=== PATIENT | male | born 1960 | race Two or more races ===

== ENCOUNTER 2018-04-29 08:16 | Observation (INO) | payer SELFPAY ==
[2018-04-29 08:49] LABS: BASO % 0.8 % (0-2.0); EOS % 2.6 % (0-4.5); HEMATOCRIT 42.2 % (35.4-49); HEMOGLOBIN 13.8 GM/dl (11.7-16.9); LYMPH % 22.9 % (8-40); MCH 30.7 pg (25.7-33.7); MCHC 32.8 g/dl (32.0-35.9); MEAN CELL VOLUME 93.7 fl (80-96); MONO % 4.8 % (3.8-10.2); NEUT % 68.9 % (42.8-82.8); PLATELET COUNT 272 K/MM3 (134-434); RDW 13.4 % (11.9-15.9); WHITE BLOOD COUNT 10.1 K/mm3 (4.0-10.8)
[2018-04-29 08:50] LABS: PH,URINE 5.5 (4.5-8); URINE APPEARANCE Clear; URINE BILIRUBIN Negative (NEGATIVE); URINE COLOR Yellow; URINE GLUCOSE (UA) Trace (NEGATIVE); URINE KETONE Negative (NEGATIVE); URINE LEUK ESTERASE Negative (NEGATIVE); URINE NITRITE Negative (NEGATIVE); URINE UROBILINOGEN 0.2 (0.2-1.0)
[2018-04-29 08:51] LABS: URINE PROTEIN 2+ (NEGATIVE)
[2018-04-29 09:02] LABS: ALBUMIN 4.7 g/dl (3.5-5.0); ALK PHOS 71 U/L (32-92); ANION GAP 10 MMOL/L (8-16); BLOOD UREA NITROGEN 21 mg/dl (7-18); CALCIUM 9.2 mg/dl (8.4-10.2); CHLORIDE 97 mmol/L (98-107); CO2 30 mmol/L (22-28); CREATININE 1.4 mg/dl (0.6-1.3); GLUCOSE,RANDOM 136 mg/dl (74-106); POTASSIUM 3.9 mmol/L (3.5-5.1); SGOT/AST 22 U/L (10-42); SGPT/ALT 22 U/L (10-40); SODIUM 137 mmol/L (136-145); TOT PROT 8.1 g/dl (6.4-8.3)
[2018-04-29] MEDS ORDERED: LABETALOL HCL 5 MG/1 ML (100MG/20 ML VIAL) IVPUSH ONE ×3 (09:05→15:30)
[2018-04-29] MEDS ORDERED: LABETALOL HCL 5 MG/1 ML (100MG/20 ML VIAL) ONE (09:09)
[2018-04-29 09:14] LABS: URINE WBC 0-3 (0-2)
[2018-04-29 09:15] LABS: EPI CELLS RARE /HPF
--- NOTE | 2018-04-29 09:35 | PDOC ---
History of Present Illness - General Chief Complaint: Blood Pressure Problem Stated Complaint: HTN Time Seen by Provider: 04/29/18 08:28 History Source: Patient Exam Limitations: Language Barrier - History of Present Illness Initial Comments: 04/29/18 09:33 58 YOM [place] speaking with no medical history presenting with hypertension. c/o left leg and calf pain intermittently x 2 months, described as "stiffness" and "spasms," worse with movement. has been taking advil 200mg tablets x 6 daily and aspirin daily x 2 months every day for his pain relief, with minimal effect. went to health clinic in [facility] 1 day ago, where he was told he has very elevated BP, but not sent home on medications. referred to ED at the time for evaluation. otherwise no MADDOX, dizziness, CP, sob, abd pain, vomiting, diarrhea, weakness. + intermittent tingling in left leg. no trauma or falls no family or personal h/o HTN, HLD, CAD, Stroke or DM. [employer] interpretation [place] #[id number] Past History - Past Medical History Allergies/Adverse Reactions: Allergies Allergy/AdvReac Type Severity Reaction Status Date / Time No Known Allergies Allergy Verified 04/29/18 08:17 Home Medications: Ambulatory Orders NK [No Known Home Medication] 04/29/18 COPD: No DVT: No Other medical history: DENIES - Suicide/Smoking/Psychosocial Hx Smoking History: Never smoked Hx Alcohol Use: No Drug/Substance Use Hx: No Substance Use Type: None Review of Systems - Review of Systems Able to Perform ROS?: Yes Comments:: 04/29/18 09:35 GENERAL/CONSTITUTIONAL: No fever or chills. No weakness. no sweats. HEAD, EYES, EARS, NOSE AND THROAT: No change in vision or hearing. No ear pain or discharge. No sore throat or mouth pain. No difficulty swallowing.. No congestion. CARDIOVASCULAR: No chest pain or palpitations, syncope or edema. RESPIRATORY: No SOB GASTROINTESTINAL No nausea/vomiting. No diarrhea or constipation. GENITOURINARY: No hematuria, dysuria, frequency, urgency or other changes. MUSCULOSKELETAL: +left leg pain, spasms and tingling. No neck or back pain. SKIN: No rash or changes in skin color or lesions. NEUROLOGIC: No headache, vertigo, loss of consciousness, no weakness. +tingling in legs HEMATOLOGIC/LYMPHATIC: No anemia, easy bruising/bleeding, or history of blood clots. ALLERGIC/IMMUNOLOGIC: No allergies All other systems reviewed and negative, or as documented in HPI. *Physical Exam - Vital Signs Last Vital Signs Temp Pulse Resp BP Pulse Ox 98.8 F 85 18 191/132 98 04/29/18 08:17 18 09:22 18 09:15 04/29/18 09:22 04/29/18 09:15 - Physical Exam Comments: 04/29/18 09:36 General: Well appearing, awake and alert, NAD. HEENT: NCAT, PERRL, EOMI, mild proptosis. clear conjunctiva, anicteric, moist mucus membranes, clear oropharynx Neck: neck supple, FROM. no JVD. Resp: CTAB, normal and even respirations, no respiratory distress CVS: RRR, no murmurs, 2+ peripheral pulses throughout, no peripheral edema Abdomen: soft, NTND, no peritoneal signs. Back: nontender, normal inspection and ROM MSK: no edema, MONTOYA x4, ROM intact. No clubbing or cyanosis. normal bulk and tone. +left calf tenderness, no swelling. Extrem: varicosities, nontendor and soft in RLE. +left calf tenderness. Neuro: alert, oriented appropriately; no focal neurologic deficits. SILT, 5/5 distal and prox strength in all extrem. speech clear. Skin: warm and well perfused, cap refill <2 sec, normal color 04/29/18 09:37 Heart Score/ECG Review - ECG Impressions Comment:: 04/29/18 09:42 EKG normal sinus rhythm, no interval abnormalities, narrow QRS, ST and T wave segments and morphology normal. Nonspecific T wave abnormalities in lateral leads, TWI in I, AVL/lateral distribution ED Treatment Course - LABORATORY CBC & Chemistry Diagram: 04/29/18 08:38 04/29/18 08:38 - ADDITIONAL ORDERS Additional order review: Laboratory Results 04/29/18 04/29/18 08:42 08:38 Sodium 137 Potassium 3.9 Chloride 97 L Carbon Dioxide 30 H Anion Gap 10 BUN 21 H Creatinine 1.4 H Creat Clearance w eGFR 51.87 Random Glucose 136 H Calcium 9.2 Total Bilirubin 1.0 AST 22 ALT 22 Alkaline Phosphatase 71 Total Protein 8.1 Albumin 4.7 Urine Color Yellow Urine Appearance Clear Urine pH 5.5 Ur Specific [place] 1.025 Urine Protein 2+ H Urine Glucose (UA) Trace Urine Ketones Negative Urine Blood 1+ H Urine Nitrite Negative Urine Bilirubin Negative Urine Urobilinogen 0.2 Ur Leukocyte Esterase Negative Urine RBC 4-6 Urine WBC 0-3 Ur Epithelial Cells Rare Hyaline Casts 3-5 04/29/18 08:38 RBC 4.50 MCV 93.7 MCHC 32.8 RDW 13.4 MPV 9.0 Neutrophils % 68.9 Lymphocytes % 22.9 Monocytes % 4.8 Eosinophils % 2.6 Basophils % 0.8 - RADIOLOGY Radiology Studies Ordered: Category Date Time Status DUPLEX VASCUL US-1 LEG [US] Stat Ultrasound 04/29/18 09:04 Ordered - Medications Given in the ED: ED Medications Discontinued Medications Generic Name Dose Route Start Last Admin Trade Name Freq PRN Reason Stop Dose Admin Labetalol HCl 10 mg 04/29/18 09:05 04/29/18 09:15 Normodyne Injection - IVPUSH 04/29/18 09:06 10 mg ONCE ONE Administration Medical Decision Making - Medical Decision Making 04/29/18 09:38 58 YOM with no known medical history presenting with Hypertension. has been taking multiple doses of NSAIDs/ASA for Left leg cramps/pain x 2 months. DDx. hypertensive urgency/emergency, YOSELIN, ATN, NSAID nephropathy. DVT, superficial thrombophlebitis. muscle spasms, neuropathy, sciatica. Vital signs reviewed, notable for Significant HTN 200s/120s, HR in 90s. given tylenol for pain control, labetalol, slow lowering of BP. likely elevated in the setting of increased NSAID use and risk of nephropathy. laboratory results and imaging reviewed, basic labs and lytes wnl, notable for elevated Cr and proteinuria. ASA levels checked and pending. EKG normal sinus rhythm, no interval abnormalities, narrow QRS, ST and T wave segments and morphology normal. Nonspecific T wave abnormalities in lateral leads, TWI in I, AVL/lateral distribution no other evidence of end organ damage, normal neuro status, no CT indicated. no cp or sob to warrant trop checks/cardiac eval. CXR with borderline cardiomegaly, but no edema or effusion. Duplex pending to r/o DVT, but with chronicity and no cp or sob, doubt PE or acute DVT as he as no risk factors such as immobilization, malignancy or pro coagulable state. - Trial of labetalol 20mg total IV, PO dose following; some improvement in BP with MAP drop of 25% max daily and slow decrease as there is risk of ischemia if too rapid drop of MAP/BP/. HR can tolerate BB. no drip at this time as he remains well appearing. Admit for hypertensive urgency with elevated Cr in setting of increased NSAID use.. Discussed results and management plan with pt via [place] interpretation at bedside, agree with impression and plan - admit to Dr. Lee, will call consults when he arrives to [facility]. 04/29/18 10:56 *DC/Admit/Observation/Transfer Diagnosis at time of Disposition: Hypertensive urgency, YOSELIN (acute kidney injury) - Discharge Dispostion Condition at time of disposition: Guarded Decision to Admit order: Yes Decision to Admit order Date/Time: 04/29/18 10:53 Decision to Admit Order Category Date Time Status Decision to Admit to Hospital Routine Admission 04/29/18 09:43 Active - Referrals - Patient Instructions - Post Discharge Activity
[2018-04-29] MEDS ORDERED: LABETALOL HCL 100 MG TABLET (FP) PO ONE (10:37)
[2018-04-29 15:51] VITALS: BMI 26.2
--- NOTE | 2018-04-29 16:55 | HP ---
Admitting History and Physical - Primary Care Physician PCP: Marietta Lee - Admission History of Present Illness: 58 YOM [place] speaking with no medical history presenting with hypertension. c/o left leg and calf pain intermittently x 2 months, described as "stiffness" and "spasms," worse with movement. has been taking advil 200mg tablets x 6 daily and aspirin daily x 2 months every day for his pain relief, with minimal effect. went to health clinic in [facility] 1 day ago, where he was told he has very elevated BP, but not sent home on medications. referred to ED at the time for evaluation. otherwise no MADDOX, dizziness, CP, sob, abd pain, vomiting, diarrhea, weakness. + intermittent tingling in left leg. no trauma or falls no family or personal h/o HTN, HLD, CAD, Stroke or DM. - Past Medical History Cardiovascular: Yes: HTN - Smoking History Smoking history: Current every day smoker Have you smoked in the past 12 months: Yes Aproximately how many cigarettes per day: 12 - Alcohol/Substance Use Hx Alcohol Use: No Home Medications - Allergies Allergies/Adverse Reactions: Allergies Allergy/AdvReac Type Severity Reaction Status Date / Time No Known Allergies Allergy Verified 04/29/18 08:17 - Home Medications Home Medications: Ambulatory Orders NK [No Known Home Medication] 04/29/18 Physical Examination Vital Signs: Vital Signs Temperature 98.8 F 04/29/18 15:34 Pulse Rate 88 04/29/18 15:34 Respiratory Rate 18 04/29/18 15:34 Blood Pressure 184/125 04/29/18 15:34 O2 Sat by Pulse Oximetry (%) 97 04/29/18 15:34 Constitutional: Yes: No Distress HENT: Yes: Atraumatic Neck: Yes: Supple Cardiovascular: Yes: Regular Rate and Rhythm Respiratory: Yes: CTA Bilaterally Gastrointestinal: Yes: Normal Bowel Sounds Extremities: Yes: WNL Edema: No Peripheral Pulses WNL: Yes Neurological: Yes: Alert, Oriented Labs: CBC, BMP 04/29/18 08:38 04/29/18 08:38 Problem List - Problems (1) YOSELIN (acute kidney injury) Assessment/Plan: ivf Code(s): N17.9 - ACUTE KIDNEY FAILURE, UNSPECIFIED (2) Hypertensive emergency Assessment/Plan: on bp meds monitor bp Code(s): I16.1 - HYPERTENSIVE EMERGENCY Assessment/Plan Laboratory Tests 04/29/18 04/29/18 04/29/18 08:38 08:38 08:42 WBC 10.1 RBC 4.50 Hgb 13.8 Hct 42.2 MCV 93.7 MCH 30.7 MCHC 32.8 RDW 13.4 Plt Count 272 MPV 9.0 Absolute Neuts (auto) 6.9 Neutrophils % 68.9 Lymphocytes % 22.9 Monocytes % 4.8 Eosinophils % 2.6 Basophils % 0.8 Sodium 137 Potassium 3.9 Chloride 97 L Carbon Dioxide 30 H Anion Gap 10 BUN 21 H Creatinine 1.4 H Creat Clearance w eGFR 51.87 Random Glucose 136 H Calcium 9.2 Total Bilirubin 1.0 AST 22 ALT 22 Alkaline Phosphatase 71 Total Protein 8.1 Albumin 4.7 TSH Urine Color Yellow Urine Appearance Clear Urine pH 5.5 Ur Specific [place] 1.025 Urine Protein 2+ H Urine Glucose (UA) Trace Urine Ketones Negative Urine Blood 1+ H Urine Nitrite Negative Urine Bilirubin Negative Urine Urobilinogen 0.2 Ur Leukocyte Esterase Negative Urine RBC 4-6 Urine WBC 0-3 Ur Epithelial Cells Rare Hyaline Casts 3-5 Salicylates 04/29/18 09:08 WBC RBC Hgb Hct MCV MCH MCHC RDW Plt Count MPV Absolute Neuts (auto) Neutrophils % Lymphocytes % Monocytes % Eosinophils % Basophils % Sodium Potassium Chloride Carbon Dioxide Anion Gap BUN Creatinine Creat Clearance w eGFR Random Glucose Calcium Total Bilirubin AST ALT Alkaline Phosphatase Total Protein Albumin TSH 1.23 Urine Color Urine Appearance Urine pH Ur Specific [place] Urine Protein Urine Glucose (UA) Urine Ketones Urine Blood Urine Nitrite Urine Bilirubin Urine Urobilinogen Ur Leukocyte Esterase Urine RBC Urine WBC Ur Epithelial Cells Hyaline Casts Salicylates < 1.7 L Active Medications Generic Name Dose Route Start Last Admin Trade Name Freq PRN Reason Stop Dose Admin Amlodipine Besylate 10 mg 04/29/18 17:00 04/29/18 17:15 Norvasc - PO 10 mg DAILY CHRIS Administration Hydralazine HCl 10 mg 04/29/18 17:11 04/29/18 17:33 Apresoline Injection - IVPUSH 10 mg Q6H PRN Administration HYPERTENSION Labetalol HCl 200 mg 04/29/18 22:00 Normodyne - PO BID CHRIS
--- NOTE | 2018-04-29 17:06 | CON.CARD ---
Consult Consult Specialty:: Cardiology Referred by:: Dr. Lee Reason for Consultation:: Cardiac evaluation - History of Present Illness Chief Complaint: HTN - uncontrolled History of Present Illness: Patient is a 58 year old male with no significant PMH except for severely elevated blood pressure found on this admission. He complains of left thigh pain. He denies chest pain, SOB or palpitations. He denies paroxysmal nocturnal dyspnea or orthopnea. He denies fever or chills. He denies nausea, vomiting, diarrhea or abdominal pain. He denies headache or lightheadedness. He was given Labetalol in the ER. - History Source History Provided By: Patient, Medical Record Limitations to Obtaining History: No Limitations - Past Medical History Cardio/Vascular: Yes: HTN - Past Surgical History Past Surgical History: Yes: None - Alcohol/Substance Use Hx Alcohol Use: No - Smoking History Smoking history: Current every day smoker Have you smoked in the past 12 months: Yes Aproximately how many cigarettes per day: 12 Home Medications - Allergies Allergies/Adverse Reactions: Allergies Allergy/AdvReac Type Severity Reaction Status Date / Time No Known Allergies Allergy Verified 04/29/18 08:17 - Home Medications Home Medications: Ambulatory Orders NK [No Known Home Medication] 04/29/18 Family Disease History - Family Disease History Family Disease History: Other: Father (HTN), Mother (HTN) Review of Systems - Review of Systems Constitutional: denies: Chills, Fever Cardiovascular: denies: Chest Pain, Palpitations, Shortness of Breath Respiratory: denies: Cough, Hemoptysis, Orthopnea, PND, SOB, SOB on Exertion Gastrointestinal: denies: Abdominal Pain, Constipation, Diarrhea, Melena, Nausea , Rectal Bleeding, Vomiting Genitourinary: denies: Dysuria, Hematuria Neurological: denies: Dizziness, Headache, Seizure, Syncope Vital Signs: Vital Signs Temperature 98.8 F 04/29/18 15:34 Pulse Rate 88 04/29/18 15:34 Respiratory Rate 18 04/29/18 15:34 Blood Pressure 184/125 04/29/18 15:34 O2 Sat by Pulse Oximetry (%) 97 04/29/18 15:34 HENT: Yes: Atraumatic Neck: Yes: Supple Respiratory: Yes: CTA Bilaterally Gastrointestinal: Yes: Normal Bowel Sounds, Soft. No: Tenderness Cardiovascular: Yes: Regular Rate and Rhythm JVD: No Carotid Bruit: No PMI: Non-Displaced Heart Sounds: Yes: S1, S2 Murmur: No: Systolic Murmur, Diastolic Murmur Edema: No - Other Data Labs, Other Data: CBC, BMP 04/29/18 08:38 04/29/18 08:38 Sinus rhythm Imaging - Results Chest X-ray: Report Reviewed (Unremarkable) Ultrasound: Report Reviewed (No DVT) EKG: Report Reviewed Problem List - Problems (1) YOSELIN (acute kidney injury) Code(s): N17.9 - ACUTE KIDNEY FAILURE, UNSPECIFIED (2) Hypertensive emergency Code(s): I16.1 - HYPERTENSIVE EMERGENCY Assessment/Plan 1. Uncontrolled HTN 2. Thigh pain likely musculoskeletal 3. CKD PLAN: 1. Add Labetalol 200 mg BID 2. Add ACEI or ARB if need further BP control and if renal function is stable 3. Transthoracic echocardiography to assess LV/RV and valvular function 4. Continue Amlodipine Further plans are to follow Emanuel Granados MD Patient was seen and examined for 30 minutes
[2018-04-29] MEDS: amLODIPine BESYLATE 10 MG TABLET (FP) PO SCH (17:15)
[2018-04-29] MEDS: hydrALAZINE HCL 20 MG/ML VIAL IVPUSH PRN (17:33)
[2018-04-29] MEDS ORDERED: LABETALOL HCL 200 MG TABLET (FP) PO ONE (19:00)
[2018-04-29] MEDS ORDERED: hydrALAZINE HCL 20 MG/ML VIAL IVPUSH ONE (20:00)
[2018-04-29] MEDS: LABETALOL HCL 200 MG TABLET (FP) PO SCH (23:30)
[2018-04-29] MEDS: ACETAMINOPHEN 325 MG TABLET (FP) PO PRN (23:48)
[2018-04-29] MEDS: oxyCODONE HCL 5 MG TABLET PO PRN (23:49)
[2018-04-30] MEDS: ACETAMINOPHEN 325 MG TABLET (FP) PO PRN ×2 (06:47→19:56)
[2018-04-30] MEDS: oxyCODONE HCL 5 MG TABLET PO PRN ×2 (06:48→19:55)
[2018-04-30] MEDS: hydrALAZINE HCL 20 MG/ML VIAL IVPUSH PRN (06:48)
[2018-04-30] MEDS: LABETALOL HCL 200 MG TABLET (FP) PO SCH ×3 (10:01→21:07)
[2018-04-30] MEDS: amLODIPine BESYLATE 10 MG TABLET (FP) PO SCH (10:01)
--- NOTE | 2018-04-30 10:46 | PN ---
Progress Note, Physician Chief Complaint: Not in distress History of Present Illness: Patient was seen and examined. Awake and alert. Chart was reviewed Denies chest pain, SOB or palpitations Elevated BP 180 systolic - Current Medication List Current Medications: Active Medications Acetaminophen (Tylenol -) 650 mg PO Q6H PRN PRN Reason: PAIN LEVEL 1-5 Last Admin: 04/30/18 06:47 Dose: 650 mg Amlodipine Besylate (Norvasc -) 10 mg PO DAILY [facility] Last Admin: 04/30/18 10:01 Dose: 10 mg Hydralazine HCl (Apresoline Injection -) 10 mg IVPUSH Q6H PRN PRN Reason: HYPERTENSION Last Admin: 04/30/18 06:48 Dose: 10 mg Labetalol HCl (Normodyne -) 200 mg PO BID [facility] Last Admin: 04/30/18 10:01 Dose: 200 mg Oxycodone HCl (Roxicodone -) 5 mg PO Q6H PRN PRN Reason: PAIN LEVEL 1-5 Last Admin: 04/30/18 06:48 Dose: 5 mg - Objective Vital Signs: Vital Signs Temperature 97.6 F 04/30/18 06:45 Pulse Rate 81 04/30/18 06:45 Respiratory Rate 20 04/30/18 06:45 Blood Pressure 188/123 04/30/18 06:45 O2 Sat by Pulse Oximetry (%) 96 04/30/18 06:00 HENT: Yes: Atraumatic Neck: Yes: Supple Cardiovascular: Yes: Regular Rate and Rhythm, S1, S2. No: Murmur Respiratory: Yes: CTA Bilaterally Gastrointestinal: Yes: Normal Bowel Sounds, Soft. No: Tenderness Edema: No Additional Findings/Remarks: - Review of Systems Constitutional: denies: Chills, Fever Cardiovascular: denies: Chest Pain, Palpitations, Shortness of Breath Respiratory: denies: Cough, Hemoptysis, Orthopnea, PND, SOB, SOB on Exertion Gastrointestinal: denies: Abdominal Pain, Constipation, Diarrhea, Melena, Nausea , Rectal Bleeding, Vomiting Genitourinary: denies: Dysuria, Hematuria Musculoskeletal: denies: Joint Pain Neurological: denies: Dizziness, Syncope, Unsteady Gait. denies: Headache, Numbness, Parasthesia, Seizure, Weakness Labs: CBC, BMP 04/29/18 08:38 04/29/18 08:38 Problem List - Problems (1) YOSELIN (acute kidney injury) Code(s): N17.9 - ACUTE KIDNEY FAILURE, UNSPECIFIED (2) Hypertensive emergency Code(s): I16.1 - HYPERTENSIVE EMERGENCY Assessment/Plan 1. Uncontrolled HTN 2. Thigh pain likely musculoskeletal 3. CKD PLAN: 1. Increase Labetalol to 200 mg TID 2. Add ACEI or ARB if need further BP control and if renal function is stable 3. Transthoracic echocardiography to assess LV/RV and valvular function 4. Continue Amlodipine 5. Hydralazine IV PRN Further plans are to follow Emanuel Granados MD Patient was seen and examined for 20 min
[2018-04-30] MEDS: LOSARTAN POTASSIUM 50 MG TABLET (FP) PO SCH (12:51)
--- NOTE | 2018-04-30 16:41 | ECHO ---
Name: QUINCY FUNG Exam:Adult Echocardiogram Study Date: 04/30/2018 08:55 AM Age: 58 yrs Reason For Study: HTN Height: 74 in Weight: 204 lb BSA: 2.2 m2 MMode/2D Measurements & Calculations IVSd: 1.5 cm Ao root diam: 3.3 cm LVIDd: 5.5 cm LA dimension: 3.7 cm LVIDs: 3.2 cm LVPWd: 1.3 cm EDV(Teich): 147.7 ml LAV (MOD-bp): 122.0 ml ESV(Teich): 41.5 ml Doppler Measurements & Calculations MV E max sathish: 75.7 cm/sec Med Peak E' Sathish: 4.9 cm/sec MV A max sathish: 112.0 cm/sec Med E/e': 15.5 MV E/A: 0.68 Lat Peak E' Sathish: 7.2 cm/sec MV dec time: 0.06 sec Lat E/e': 10.5 Procedure A two-dimensional transthoracic echocardiogram with color flow and Doppler was performed. The patient was in normal sinus rhythm during the exam. Left Ventricle There is moderate concentric left ventricular hypertrophy. Consider infiltrative cardiomyopathy. Left ventricular systolic function is low normal. Ejection Fraction = 50-55%. E/A reversal consistent with but not diagnostic of poor LV compliance. Right Ventricle The right ventricle is normal size. The right ventricular systolic function is normal. Atria The left atrium is moderately dilated. Right atrial size is normal. Mitral Valve The mitral valve is normal. There is no mitral regurgitation noted. Tricuspid Valve The tricuspid valve is normal. No tricuspid regurgitation. Aortic Valve The aortic valve is normal in structure and function. The aortic valve is trileaflet. No aortic regur gitation is present. Pulmonic Valve The pulmonic valve is not well seen, but is grossly normal. There is no pulmonic valvular regurgitati on. Great Vessels The aortic root is normal size. Pericardium/Pleura There is no pericardial effusion. Interpretation Summary There is moderate concentric left ventricular hypertrophy. Consider infiltrative cardiomyopathy. Left ventricular systolic function is low normal. Ejection Fraction = 50-55%. E/A reversal consistent with but not diagnostic of poor LV compliance The right ventricular systolic function is normal. The left atrium is moderately dilated. There is no pericardial effusion. Maged Crowell 04/30/2018 04:41 PM
--- NOTE | 2018-04-30 16:44 | EKG ---
Test Reason : Blood Pressure : / mmHG Vent. Rate : 099 BPM Atrial Rate : 099 BPM P-R Int : 150 ms QRS Dur : 096 ms QT Int : 374 ms P-R-T Axes : 041 -17 101 degrees QTc Int : 479 ms NORMAL SINUS RHYTHM PROLONGED QT ABNORMAL ECG NO PREVIOUS ECGS AVAILABLE Confirmed by Clark De La Torre ([id number]) on 04/30/2018 4:44:23 PM Referred By: JOSEFA STEWART Confirmed By:Clark De La Torre
--- NOTE | 2018-04-30 17:32 | PN ---
Progress Note, Physician - Current Medication List Current Medications: Active Medications Acetaminophen (Tylenol -) 650 mg PO Q6H PRN PRN Reason: PAIN LEVEL 1-5 Last Admin: 04/30/18 06:47 Dose: 650 mg Amlodipine Besylate (Norvasc -) 10 mg PO DAILY [facility] Last Admin: 04/30/18 10:01 Dose: 10 mg Hydralazine HCl (Apresoline Injection -) 10 mg IVPUSH Q6H PRN PRN Reason: HYPERTENSION Last Admin: 04/30/18 06:48 Dose: 10 mg Labetalol HCl (Normodyne -) 200 mg PO TID [facility] Last Admin: 04/30/18 13:34 Dose: 200 mg Losartan Potassium (Cozaar -) 50 mg PO DAILY [facility] Last Admin: 04/30/18 12:51 Dose: 50 mg Oxycodone HCl (Roxicodone -) 5 mg PO Q6H PRN PRN Reason: PAIN LEVEL 1-5 Last Admin: 04/30/18 06:48 Dose: 5 mg - Objective Vital Signs: Vital Signs Temperature 98.3 F 04/30/18 14:59 Pulse Rate 80 04/30/18 14:59 Respiratory Rate 20 04/30/18 14:59 Blood Pressure 154/99 04/30/18 14:59 O2 Sat by Pulse Oximetry (%) 95 04/30/18 10:00 Constitutional: Yes: No Distress HENT: Yes: Atraumatic Neck: Yes: Supple Cardiovascular: Yes: Regular Rate and Rhythm Respiratory: Yes: CTA Bilaterally Gastrointestinal: Yes: Normal Bowel Sounds Extremities: Yes: WNL Neurological: Yes: Alert, Oriented Labs: CBC, BMP 04/29/18 08:38 04/29/18 08:38 Problem List - Problems (1) YOSELIN (acute kidney injury) Assessment/Plan: ivf Code(s): N17.9 - ACUTE KIDNEY FAILURE, UNSPECIFIED (2) Hypertensive emergency Assessment/Plan: on bp meds monitor bp Code(s): I16.1 - HYPERTENSIVE EMERGENCY
[2018-04-30] MEDS: GABAPENTIN 100 MG CAPSULE (FP) PO SCH (21:07)
[2018-05-01] MEDS: GABAPENTIN 100 MG CAPSULE (FP) PO SCH ×3 (05:49→21:13)
[2018-05-01] MEDS: LABETALOL HCL 200 MG TABLET (FP) PO SCH (05:49)
[2018-05-01] MEDS: LOSARTAN POTASSIUM 50 MG TABLET (FP) PO SCH (10:27)
[2018-05-01] MEDS: amLODIPine BESYLATE 10 MG TABLET (FP) PO SCH (10:27)
[2018-05-01] MEDS: oxyCODONE HCL 5 MG TABLET PO PRN ×2 (10:28→16:47)
[2018-05-01] MEDS: ACETAMINOPHEN 325 MG TABLET (FP) PO PRN ×3 (10:29→21:45)
--- NOTE | 2018-05-01 11:31 | PN ---
Progress Note, Physician History of Present Illness: Patient reports left thigh pain, denies chest pain or dyspnea. - Current Medication List Current Medications: Active Medications Acetaminophen (Tylenol -) 650 mg PO Q6H PRN PRN Reason: PAIN LEVEL 1-5 Last Admin: 05/01/18 10:29 Dose: 650 mg Amlodipine Besylate (Norvasc -) 10 mg PO DAILY [facility] Last Admin: 05/01/18 10:27 Dose: 10 mg Gabapentin (Neurontin -) 100 mg PO TID [facility] Last Admin: 05/01/18 05:49 Dose: 100 mg Hydralazine HCl (Apresoline Injection -) 10 mg IVPUSH Q6H PRN PRN Reason: HYPERTENSION Last Admin: 04/30/18 06:48 Dose: 10 mg Labetalol HCl (Normodyne -) 200 mg PO TID [facility] Last Admin: 05/01/18 05:49 Dose: 200 mg Losartan Potassium (Cozaar -) 50 mg PO DAILY [facility] Last Admin: 05/01/18 10:27 Dose: 50 mg Oxycodone HCl (Roxicodone -) 5 mg PO Q6H PRN PRN Reason: PAIN LEVEL 1-5 Last Admin: 05/01/18 10:28 Dose: 5 mg - Objective Vital Signs: Vital Signs Temperature 98.2 F 05/01/18 05:49 Pulse Rate 76 05/01/18 05:49 Respiratory Rate 20 05/01/18 05:49 Blood Pressure 174/101 05/01/18 05:49 O2 Sat by Pulse Oximetry (%) 95 05/01/18 02:00 Constitutional: Yes: No Distress, Calm Neck: Yes: Supple Cardiovascular: Yes: Regular Rate and Rhythm Respiratory: Yes: Regular, CTA Bilaterally Gastrointestinal: Yes: Normal Bowel Sounds, Soft Edema: No Labs: CBC, BMP 04/29/18 08:38 04/29/18 08:38 - ....Imaging EKG: Report Reviewed (Tele: NSR) Problem List - Problems (1) Hypertensive cardiomegaly without heart failure Code(s): I11.9 - HYPERTENSIVE HEART DISEASE WITHOUT HEART FAILURE (2) Chronic kidney disease Code(s): N18.9 - CHRONIC KIDNEY DISEASE, UNSPECIFIED Qualifiers: Chronic kidney disease stage: stage 2 (mild) Qualified Code(s): N18.2 - Chronic kidney disease, stage 2 (mild) Assessment/Plan 04/30/2018 Mod cLVH consider infiltrative cardiomyopathy low normal fxn, LVEF 50 -55%, mod LAE 1. Uncontrolled HTN cardiomypathy without failure 2. Thigh pain likely musculoskeletal 3. CKD PLAN: 1. Change labetolol to carvedilol 6.25 bid, continue norvasc 10 qd and losartan 50 qd with uptitration as tolerated 2. Check spep, upep for MM/amyloid 3. Hydralazine IV and analgesia PRN
[2018-05-01] MEDS: CARVEDILOL 6.25 MG TABLET (FP) PO SCH ×2 (13:15→21:10)
--- NOTE | 2018-05-01 15:21 | PN ---
Progress Note, Physician - Current Medication List Current Medications: Active Medications Acetaminophen (Tylenol -) 650 mg PO Q6H PRN PRN Reason: PAIN LEVEL 1-5 Last Admin: 05/01/18 10:29 Dose: 650 mg Amlodipine Besylate (Norvasc -) 10 mg PO DAILY [facility] Last Admin: 05/01/18 10:27 Dose: 10 mg Carvedilol (Coreg -) 6.25 mg PO BID [facility] Last Admin: 05/01/18 13:15 Dose: 6.25 mg Gabapentin (Neurontin -) 100 mg PO TID [facility] Last Admin: 05/01/18 05:49 Dose: 100 mg Hydralazine HCl (Apresoline Injection -) 10 mg IVPUSH Q6H PRN PRN Reason: HYPERTENSION Last Admin: 04/30/18 06:48 Dose: 10 mg Losartan Potassium (Cozaar -) 50 mg PO DAILY [facility] Last Admin: 05/01/18 10:27 Dose: 50 mg Oxycodone HCl (Roxicodone -) 5 mg PO Q6H PRN PRN Reason: PAIN LEVEL 1-5 Last Admin: 05/01/18 10:28 Dose: 5 mg - Objective Vital Signs: Vital Signs Temperature 98.2 F 05/01/18 14:00 Pulse Rate 86 05/01/18 14:00 Respiratory Rate 20 05/01/18 10:00 Blood Pressure 159/85 05/01/18 14:00 O2 Sat by Pulse Oximetry (%) 95 05/01/18 10:00 HENT: Yes: Atraumatic Neck: Yes: Supple Cardiovascular: Yes: Regular Rate and Rhythm Respiratory: Yes: CTA Bilaterally Gastrointestinal: Yes: Normal Bowel Sounds Extremities: Yes: WNL Neurological: Yes: Alert Labs: CBC, BMP 04/29/18 08:38 04/29/18 08:38 Problem List - Problems (1) YOSELIN (acute kidney injury) Assessment/Plan: wnl now Code(s): N17.9 - ACUTE KIDNEY FAILURE, UNSPECIFIED (2) Hypertensive emergency Assessment/Plan: on bp meds bp still high meds getting adjusted Code(s): I16.1 - HYPERTENSIVE EMERGENCY (3) Leg pain Assessment/Plan: on pain meds says feels better Code(s): M79.606 - PAIN IN LEG, UNSPECIFIED
--- NOTE | 2018-05-01 15:34 | DS ---
Physical Examination Vital Signs: Vital Signs Temperature 98.2 F 05/01/18 14:00 Pulse Rate 86 05/01/18 14:00 Respiratory Rate 20 05/01/18 10:00 Blood Pressure 159/85 05/01/18 14:00 O2 Sat by Pulse Oximetry (%) 95 05/01/18 10:00 Labs: CBC, BMP 04/29/18 08:38 04/29/18 08:38 Discharge Summary Reason For Visit: HYPERTENSION URGENCY ACUTE KIDNEY INJURY Current Active Problems YOSELIN (acute kidney injury) (Acute) Chronic kidney disease (Acute) Hypertensive cardiomegaly without heart failure (Acute) Hypertensive emergency (Acute) Condition: Guarded - Instructions Diet, Activity, Other Instructions: do not take labetolol from pharmacy - Home Medications Comprehensive Discharge Medication List: Ambulatory Orders Amlodipine Besylate [Norvasc -] 10 mg PO DAILY #30 tablet 05/01/18 Carvedilol [Coreg -] 6.25 mg PO BID #60 tablet 05/01/18 Gabapentin [Neurontin -] 100 mg PO TID #90 capsule 05/01/18 Losartan Potassium [Cozaar -] 50 mg PO DAILY #30 tablet 05/01/18
[2018-05-01] MEDS ORDERED: PT OWN MED DRAWER 7, Y5N ONE (15:56)
[2018-05-02] MEDS: oxyCODONE HCL 5 MG TABLET PO PRN ×3 (01:07→17:52)
[2018-05-02] MEDS: hydrALAZINE HCL 20 MG/ML VIAL IVPUSH PRN ×2 (01:08→14:23)
[2018-05-02] MEDS: ACETAMINOPHEN 325 MG TABLET (FP) PO PRN ×2 (05:49→17:52)
[2018-05-02] MEDS: GABAPENTIN 100 MG CAPSULE (FP) PO SCH ×3 (05:49→22:30)
[2018-05-02 06:40] LABS: ANION GAP 4 MMOL/L (8-16); BLOOD UREA NITROGEN 26 mg/dL (7-18); CALCIUM 8.9 mg/dL (8.5-10.1); CHLORIDE 104 mmol/L (98-107); CO2 30 mmol/L (21-32); CREATININE 1.3 mg/dL (0.55-1.3); GLUCOSE,RANDOM 111 mg/dL (74-106); POTASSIUM 4.2 mmol/L (3.5-5.1); SODIUM 138 mmol/L (136-145)
--- NOTE | 2018-05-02 10:08 | PN ---
Progress Note, Physician History of Present Illness: Patient reports left thigh pain, denies chest pain or dyspnea. - Current Medication List Current Medications: Active Medications Acetaminophen (Tylenol -) 650 mg PO Q6H PRN PRN Reason: PAIN LEVEL 1-5 Last Admin: 05/02/18 05:49 Dose: 650 mg Amlodipine Besylate (Norvasc -) 10 mg PO DAILY [facility] Last Admin: 05/01/18 10:27 Dose: 10 mg Carvedilol (Coreg -) 6.25 mg PO BID [facility] Last Admin: 05/01/18 21:10 Dose: 6.25 mg Gabapentin (Neurontin -) 100 mg PO TID [facility] Last Admin: 05/02/18 05:49 Dose: 100 mg Hydralazine HCl (Apresoline Injection -) 10 mg IVPUSH Q6H PRN PRN Reason: HYPERTENSION Last Admin: 05/02/18 01:08 Dose: 10 mg Losartan Potassium (Cozaar -) 50 mg PO DAILY [facility] Last Admin: 05/01/18 10:27 Dose: 50 mg Oxycodone HCl (Roxicodone -) 5 mg PO Q6H PRN PRN Reason: PAIN LEVEL 1-5 Last Admin: 05/02/18 01:07 Dose: 5 mg - Objective Vital Signs: Vital Signs Temperature 98.3 F 05/02/18 05:52 Pulse Rate 81 05/02/18 05:52 Respiratory Rate 20 05/02/18 05:52 Blood Pressure 153/112 05/02/18 05:52 O2 Sat by Pulse Oximetry (%) 96 05/01/18 23:42 Constitutional: Yes: No Distress, Calm Neck: Yes: Supple Cardiovascular: Yes: Regular Rate and Rhythm Respiratory: Yes: Regular, CTA Bilaterally Gastrointestinal: Yes: Normal Bowel Sounds, Soft Edema: No Labs: CBC, BMP 04/29/18 08:38 05/02/18 06:00 Problem List - Problems (1) Hypertensive cardiomegaly without heart failure Code(s): I11.9 - HYPERTENSIVE HEART DISEASE WITHOUT HEART FAILURE (2) Chronic kidney disease Code(s): N18.9 - CHRONIC KIDNEY DISEASE, UNSPECIFIED Qualifiers: Chronic kidney disease stage: stage 2 (mild) Qualified Code(s): N18.2 - Chronic kidney disease, stage 2 (mild) Assessment/Plan 04/30/2018 Mod cLVH consider infiltrative cardiomyopathy low normal fxn, LVEF 50 -55%, mod LAE 1. Uncontrolled HTN cardiomypathy without failure 2. Thigh pain likely musculoskeletal 3. CKD PLAN: 1. Increase carvedilol 12.5 bid, norvasc 10 qd and losartan 50 qd with uptitration as tolerated 2. Check spep, upep for MM/amyloid 3. Hydralazine IV and analgesia PRN 4. CT scan of left thigh to r/o spontaneous hematoma
[2018-05-02] MEDS ORDERED: CARVEDILOL 6.25 MG TABLET (FP) PO SCH (10:10)
[2018-05-02] MEDS: CARVEDILOL 12.5 MG TABLET (FP) PO SCH ×2 (10:16→22:30)
[2018-05-02 10:17] LABS: ALBUMIN 3.7 g/dl (3.4-5.0); BILIRUBIN,TOTAL 0.7 mg/dL (0.2-1)
[2018-05-02 10:21] LABS: ALK PHOS 68 U/L (45-117); SGOT/AST 15 U/L (15-37); SGPT/ALT 25 U/L (13-61); TOT PROT 7.1 g/dl (6.4-8.2)
[2018-05-02] MEDS ORDERED: CARVEDILOL 6.25 MG TABLET (FP) PO ONE (10:30)
[2018-05-02] MEDS: amLODIPine BESYLATE 10 MG TABLET (FP) PO SCH (10:51)
[2018-05-02] MEDS: CARVEDILOL 6.25 MG TABLET (FP) PO SCH (10:51)
[2018-05-02] MEDS: LOSARTAN POTASSIUM 50 MG TABLET (FP) PO SCH (10:51)
[2018-05-02] MEDS ORDERED: CARVEDILOL 12.5 MG TABLET (FP) PO SCH (12:01)
--- NOTE | 2018-05-02 13:14 | DS ---
Physical Examination Vital Signs: Vital Signs Temperature 98.3 F 05/02/18 05:52 Pulse Rate 85 05/02/18 10:56 Respiratory Rate 18 05/02/18 10:56 Blood Pressure 159/108 05/02/18 10:56 O2 Sat by Pulse Oximetry (%) 96 05/01/18 23:42 Labs: CBC, BMP 04/29/18 08:38 05/02/18 06:00 Discharge Summary Reason For Visit: HYPERTENSION URGENCY ACUTE KIDNEY INJURY Current Active Problems YOSELIN (acute kidney injury) (Acute) Chronic kidney disease (Acute) Hypertensive cardiomegaly without heart failure (Acute) Hypertensive emergency (Acute) Condition: Guarded - Instructions Diet, Activity, Other Instructions: do not take labetolol from pharmacy - Home Medications Comprehensive Discharge Medication List: Ambulatory Orders Amlodipine Besylate [Norvasc -] 10 mg PO DAILY #30 tablet 05/01/18 Carvedilol [Coreg -] 6.25 mg PO BID #60 tablet 05/01/18 Gabapentin [Neurontin -] 100 mg PO TID #90 capsule 05/01/18 Losartan Potassium [Cozaar -] 50 mg PO DAILY #30 tablet 05/01/18
[2018-05-02] MEDS ORDERED: LOSARTAN POTASSIUM 50 MG TABLET (FP) PO SCH (17:15)
[2018-05-02] MEDS ORDERED: LOSARTAN POTASSIUM 50 MG TABLET (FP) PO ONE (17:30)
--- NOTE | 2018-05-02 18:44 | PN ---
Progress Note, Physician History of Present Illness: c/o left leg pain - Current Medication List Current Medications: Active Medications Acetaminophen (Tylenol -) 650 mg PO Q6H PRN PRN Reason: PAIN LEVEL 1-5 Last Admin: 05/02/18 17:52 Dose: 650 mg Amlodipine Besylate (Norvasc -) 10 mg PO DAILY [facility] Last Admin: 05/02/18 10:51 Dose: 10 mg Carvedilol (Coreg -) 12.5 mg PO BID [facility] Last Admin: 05/02/18 10:16 Dose: 12.5 mg Gabapentin (Neurontin -) 100 mg PO TID [facility] Last Admin: 05/02/18 13:29 Dose: 100 mg Hydralazine HCl (Apresoline Injection -) 10 mg IVPUSH Q6H PRN PRN Reason: HYPERTENSION Last Admin: 05/02/18 14:23 Dose: 10 mg Losartan Potassium (Cozaar -) 100 mg PO DAILY [facility] Oxycodone HCl (Roxicodone -) 5 mg PO Q6H PRN PRN Reason: PAIN LEVEL 1-5 Last Admin: 05/02/18 17:52 Dose: 5 mg - Objective Vital Signs: Vital Signs Temperature 98.6 F 05/02/18 17:30 Pulse Rate 83 05/02/18 17:30 Respiratory Rate 20 05/02/18 17:30 Blood Pressure 161/109 05/02/18 14:00 O2 Sat by Pulse Oximetry (%) 96 05/02/18 10:00 Constitutional: Yes: No Distress HENT: Yes: Atraumatic Neck: Yes: Supple Cardiovascular: Yes: Regular Rate and Rhythm Respiratory: Yes: CTA Bilaterally Gastrointestinal: Yes: Normal Bowel Sounds Extremities: Yes: WNL Edema: No Peripheral Pulses WNL: Yes Neurological: Yes: Alert, Oriented Labs: CBC, BMP 04/29/18 08:38 05/02/18 06:00 Problem List - Problems (1) YOSELIN (acute kidney injury) Assessment/Plan: wnl now Code(s): N17.9 - ACUTE KIDNEY FAILURE, UNSPECIFIED (2) Hypertensive emergency Assessment/Plan: on bp meds bp still high meds getting adjusted Code(s): I16.1 - HYPERTENSIVE EMERGENCY (3) Leg pain Assessment/Plan: on pain meds says feels better ct leg done Code(s): M79.606 - PAIN IN LEG, UNSPECIFIED
[2018-05-03] MEDS: hydrALAZINE HCL 20 MG/ML VIAL IVPUSH PRN (06:37)
[2018-05-03] MEDS: GABAPENTIN 100 MG CAPSULE (FP) PO SCH (06:37)
[2018-05-03] MEDS ORDERED: LOSARTAN POTASSIUM 50 MG TABLET (FP) PO SCH (10:00)
[2018-05-03] MEDS ORDERED: oxyCODONE HCL 5 MG TABLET PO PRN (10:22)
[2018-05-03] MEDS: ACETAMINOPHEN 325 MG TABLET (FP) PO PRN (10:34)
[2018-05-03] MEDS: amLODIPine BESYLATE 10 MG TABLET (FP) PO SCH (10:34)
[2018-05-03] MEDS: CARVEDILOL 12.5 MG TABLET (FP) PO SCH (10:34)
--- NOTE | 2018-05-03 11:38 | PN ---
Progress Note, Physician History of Present Illness: Patient reports left thigh pain, CT scan negative for hematoma/abscess, denies chest pain or dyspnea. - Current Medication List Current Medications: Active Medications Acetaminophen (Tylenol -) 650 mg PO Q6H PRN PRN Reason: PAIN LEVEL 1-5 Last Admin: 05/03/18 10:34 Dose: 650 mg Amlodipine Besylate (Norvasc -) 10 mg PO DAILY [facility] Last Admin: 05/03/18 10:34 Dose: 10 mg Carvedilol (Coreg -) 12.5 mg PO BID [facility] Last Admin: 05/03/18 10:34 Dose: 12.5 mg Gabapentin (Neurontin -) 100 mg PO TID [facility] Last Admin: 05/03/18 06:37 Dose: 100 mg Hydralazine HCl (Apresoline Injection -) 10 mg IVPUSH Q6H PRN PRN Reason: HYPERTENSION Last Admin: 05/03/18 06:37 Dose: 10 mg Losartan Potassium (Cozaar -) 100 mg PO DAILY [facility] Last Admin: 05/03/18 10:34 Dose: 100 mg Oxycodone HCl (Roxicodone -) 5 mg PO Q6H PRN PRN Reason: PAIN LEVEL 1-5 Last Admin: 05/03/18 10:34 Dose: 5 mg - Objective Vital Signs: Vital Signs Temperature 98.0 F 05/03/18 10:00 Pulse Rate 97 H 05/03/18 10:00 Respiratory Rate 18 05/03/18 10:00 Blood Pressure 160/102 05/03/18 10:00 O2 Sat by Pulse Oximetry (%) 94 L 05/02/18 21:00 Constitutional: Yes: No Distress, Calm Neck: Yes: Supple Cardiovascular: Yes: Regular Rate and Rhythm Respiratory: Yes: Regular, CTA Bilaterally Gastrointestinal: Yes: Normal Bowel Sounds, Soft Edema: No Labs: CBC, BMP 04/29/18 08:38 05/02/18 06:00 Problem List - Problems (1) Hypertensive cardiomegaly without heart failure Code(s): I11.9 - HYPERTENSIVE HEART DISEASE WITHOUT HEART FAILURE (2) Chronic kidney disease Code(s): N18.9 - CHRONIC KIDNEY DISEASE, UNSPECIFIED Qualifiers: Chronic kidney disease stage: stage 2 (mild) Qualified Code(s): N18.2 - Chronic kidney disease, stage 2 (mild) Assessment/Plan 04/30/2018 Mod cLVH consider infiltrative cardiomyopathy low normal fxn, LVEF 50 -55%, mod LAE 1. Uncontrolled HTN cardiomypathy without failure, BP control improved 2. Thigh pain likely musculoskeletal ruled out for hematoma/abscess 3. CKD PLAN: 1. Increased carvedilol 12.5 bid, norvasc 10 qd and losartan 100 qd with uptitration as tolerated 2. Check spep, upep for MM/amyloid 3. Hydralazine IV and analgesia PRN 4. D/c planning
--- NOTE | 2018-05-03 13:50 | DS ---
Physical Examination Vital Signs: Vital Signs Temperature 98.0 F 05/03/18 10:00 Pulse Rate 97 H 05/03/18 10:00 Respiratory Rate 18 05/03/18 10:00 Blood Pressure 160/102 05/03/18 10:00 O2 Sat by Pulse Oximetry (%) 94 L 05/02/18 21:00 Constitutional: Yes: No Distress HENT: Yes: Atraumatic Neck: Yes: Supple Cardiovascular: Yes: Regular Rate and Rhythm Respiratory: Yes: CTA Bilaterally Gastrointestinal: Yes: Normal Bowel Sounds Extremities: Yes: WNL Neurological: Yes: Alert, Oriented Labs: CBC, BMP 04/29/18 08:38 05/02/18 06:00 Discharge Summary Reason For Visit: HYPERTENSION URGENCY ACUTE KIDNEY INJURY Current Active Problems YOSELIN (acute kidney injury) (Acute) Chronic kidney disease (Acute) Hypertensive cardiomegaly without heart failure (Acute) Hypertensive emergency (Acute) Leg pain (Acute) Condition: Guarded - Instructions Diet, Activity, Other Instructions: follow up at [facility] (formerly [facility])[3] Referrals: Nik Dunne MD [Staff Physician] - Aysha Marsh MD [Staff Physician] - Disposition: HOME - Home Medications Comprehensive Discharge Medication List: Ambulatory Orders Amlodipine Besylate [Norvasc -] 10 mg PO DAILY #30 tablet 05/01/18 Gabapentin [Neurontin -] 100 mg PO TID #90 capsule 05/01/18 Carvedilol [Coreg -] 12.5 mg PO BID #60 tablet 05/03/18 Losartan Potassium [Cozaar -] 100 mg PO DAILY #30 tablet 05/03/18 ct leg negative bp better leg pain better will dc home fu cardio/neuro as out patient
[2018-05-03 14:29] VITALS: BP 147/88; PULSE 87; TEMP 97.8
== END 2018-05-03 15:49 | disposition home or self-care (01) ==
LOC: FER 08:16 → INTOOBSV 14:30 → J4S 14:30 → UNDOADMOB 14:30 → J4S 16:56
PROVIDERS: ADMIT Internal Medicine; ATTEND Internal Medicine
PROC: 3E033GC Introduction of Other Therapeutic Substance into Peripheral Vein, Percutaneous Approach (ICD-10-PCS; principal; 2018-04-29)
DX: I16.1 Hypertensive emergency (principal); I16.0 Hypertensive urgency; I11.9 Hypertensive heart disease without heart failure; I12.9 Hypertensive chronic kidney disease with stage 1 through stage 4 chronic kidney disease, or unspecified chronic kidney disease; N18.9 Chronic kidney disease, unspecified; N17.9 Acute kidney failure, unspecified; F17.210 Nicotine dependence, cigarettes, uncomplicated; M79.652 Pain in left thigh
CPT/HCPCS: 36415; 71046-TC-FY; 73700-TC-RT; 80048; 80053; 80307; 81003; 81015; 82550; 84155; 84156; 84165; 84166; 84443; 84484; 85025; 93005; 93306-TC; 93971-TC; 99284-25; G0378